=== PATIENT | male | born 1950 | race Caucasian/White ===

== ENCOUNTER 2023-02-06 05:56 | Day surgery (SDC) | payer MEDICARE, BC ==
[2023-01-30 13:50] LABS: BASOPHILS # (AUTO) 0.1 X10'3 (0-0.2); BASOPHILS % (AUTO) 1.2 % (0-1); EOSINOPHILS # (AUTO) 0.3 X10'3 (0-0.9); EOSINOPHILS % (AUTO) 2.6 % (0-6); LYMPHOCYTES # (AUTO) 2.9 X10'3 (1.1-4.8); LYMPHOCYTES % (AUTO) 27.8 % (21-51); MEAN CORPUSCULAR HEMOGLOBIN 29.7 PG (27.0-31.0); MEAN CORPUSCULAR HGB CONC 32.7 g/dL (33.0-36.5); MEAN CORPUSCULAR VOLUME 90.9 FL (78-98); MEAN PLATELET VOLUME 8.9 FL (7.4-10.4); MONOCYTES % (AUTO) 9.7 % (2-12); NEUTROPHILS # (AUTO) 6.1 X10'3 (1.8-7.7); NEUTROPHILS % (AUTO) 58.7 % (42-75); PRE OP HEMATOCRIT 45.5 % (42.0-52.0); PRE OP HEMOGLOBIN 14.9 g/dL (14.0-17.9); PRE OP PLATELET COUNT 265 X10'3 (140-440); RED BLOOD COUNT 5.01 X10'6 (4.70-6.10)
[2023-01-30 14:23] LABS: ALBUMIN 3.3 G/DL (3.4-5.0); ALBUMIN/GLOBULIN RATIO 0.8 (1.1-1.5); ALKALINE PHOSPHATASE 79 IU/L (46-116); BLOOD UREA NITROGEN 8 MG/DL (7-18); BUN/CREATININE RATIO 6.3 (10.0-20.0); CALCIUM 8.9 MG/DL (8.5-10.1); CHLORIDE 105 MMOL/L (99-107); CREATININE 1.26 MG/DL (0.60-1.10); PRE OP ALT 32 U/L (30-65); PRE OP ANION GAP 6 (8-16); PRE OP AST 24 U/L (10-37); PRE OP BILIRUB, TOTAL 0.6 MG/DL (0.0-1.0); PRE OP GLUCOSE 111 MG/DL (70-104); PRE OP POTASSIUM 4.1 MMOL/L (3.4-5.1); PRE OP SODIUM 138 MMOL/L (135-145); TOTAL CARBON DIOXIDE 27.4 MMOL/L (24-32); TOTAL PROTEIN 7.3 G/DL (6.4-8.2); eGFR 57 ML/MIN
[~2023-02-06] VITALS: Ht 182.9 cm; Wt 152.8 kg
[2023-02-06] VITALS (13 sets, daily range): BP systolic 132–181; BP diastolic 81–112; PULSE 63–95; RESP 6–22; TEMP 97.4; O2SAT 93–100
[~2023-02-06 05:56] MED LIST: APIX5TAB3 PO; DOCUMENT DATE & TIME OF BETA-BLOCKER PO ONE; FURO80TA3 PO; LOSA100T58 PO; METO-411 PO; MULT-1085 PO; ceFAZolin inj. 3,000 MG in normal saline 100ml IV soln 100 ML IV ONE; famotidine 20mg tablet PO ONE; normal saline 1000ml 500 ML IV SCH
[2023-02-06] MEDS ORDERED: BUPIVAcaine/PF 2.5 mg/ml (0.25%) 30ml vial ONE (06:31)
[2023-02-06] MEDS ORDERED: ringers solution, lacted 1,000 ML IV SCH (07:30)
[2023-02-06] MEDS ORDERED: morphine 2 MG/ML inj. syringe IV PRN (07:30)
[2023-02-06] MEDS ORDERED: ondansetron/PF 4mg/2ml inj IV PRN (07:30)
[2023-02-06] MEDS ORDERED: hydrALAZINE 20mg/ml inj. IV PRN (07:30)
[2023-02-06] MEDS ORDERED: morphine 4 MG/ML inj SYRINge IV PRN (07:30)
[2023-02-06] MEDS ORDERED: fentaNYL/PF 50MCG/1 ML 2ML syringe IV PRN ×2 (07:30)
[2023-02-06] MEDS ORDERED: labetalol 20mg/4ml (5mg/ml) syringe IV PRN (07:30)
[2023-02-06] MEDS ORDERED: fentaNYL /PF 50mcg/ml 5ml ampule ONE (09:25)
[2023-02-06] MEDS ORDERED: midazolam 1 mg/ML 2ml injection ONE (09:25)
[2023-02-06] MEDS ORDERED: LIDOcaine 2% (20mg/ml) 5ml vial ONE (09:25)
[2023-02-06] MEDS ORDERED: propofol inj 20 ML IV ONE ×2 (09:25→09:26)
[2023-02-06] MEDS ORDERED: rocuronium 10mg/ml inj IV ONE (09:26)
[2023-02-06] MEDS ORDERED: ondansetron/PF 4mg/2ml inj ONE (09:26)
[2023-02-06] MEDS ORDERED: dexamethasone sod phosphate 4mg/ml inj. ONE (09:26)
[2023-02-06] MEDS ORDERED: desflurane 240ml liquid inh. IH ONE (09:27)
[2023-02-06] MEDS ORDERED: sugammadex 200mg/2ml injection IV ONE (09:29)
[2023-02-06] MEDS ORDERED: phenylephrine 10mg/ml inj. -priapism dosing ONE (10:05)
[2023-02-06] MEDS ORDERED: bacitracin 15gm ointment TP ONE (10:24)
--- NOTE | 2023-02-06 10:45 | NUR ---
Received from OR via [facility], accompanied by Anesthesiologist DR SHRESTHA and report given by Anesthesiologist. PT IS AWAKE AND FOLLOWING COMMANDS. PT PLACED ON BEDSIDE MONITOR, VSS. PT IS IN A-FIB WITH CONTROLLED RATE IN 60'S. PT IS RECEIVING 10L O2 TO MASK AND TOLERATING WELL WITH O2 SAT >97%. WILL TITRATE DOWN PT TOLERATES. PT HAS 20G PIV TO LEFT HAND WITH LR INFUSING ORDERED. PT HAS LARGE DRSG TO MID ABD THAT IS CDI. PT DENIES PAIN AT THIS TIME, STATES BURNING SENSATION AND URGE TO URINATE. WILL CONTINUE TO ASSESS
[2023-02-06] MEDS ORDERED: HYDROcodone/acetaminophen 10/325mg tab PO ONE (11:50)
--- NOTE | 2023-02-06 13:14 | NUR ---
ALL DISCHARGE CRITERIA HAS BEEN MET. VSS, PAIN AT TOLERABLE LEVEL. ABLE TO SAFELY AMBULATE AND TRANSFER SELF. PT VOIDED 175ML VIA URINAL. IV TAKEN OUT WITHOUT ANY COMPLICATIONS. ALL DISCHARGE INSTRUCTIONS COVERED WITH PATIENT AND PT'S NIECE AND ALL QUESTIONS ANSWERED. PATIENT TAKEN OUT VIA WHEELCHAIR TO PERSONAL VEHICLE WHERE FAMILY/FRIEND DROVE PATIENT HOME.
== END 2023-02-06 12:56 | disposition home or self-care (01) ==
LOC: PAS 05:56
PROVIDERS: ATTEND Surgery
DX: K42.0 Umbilical hernia with obstruction, without gangrene (principal); I10 Essential (primary) hypertension; I48.91 Unspecified atrial fibrillation; E66.01 Morbid (severe) obesity due to excess calories; Z68.42 Body mass index [BMI] 45.0-49.9, adult; Z79.899 Other long term (current) drug therapy; Z87.891 Personal history of nicotine dependence; Z98.890 Other specified postprocedural states; Z79.01 Long term (current) use of anticoagulants; F10.91 Alcohol use, unspecified, in remission
CPT/HCPCS: 36415; 49594; 80053; 82948; 85025; J0690; J1100; J2250; J2270; J2370; J2405; J2704; J3010; J3490; J7030; J7120; Z7506; Z7508; Z7512; A4618; A6446; A6449; A7000

== ENCOUNTER 2024-02-07 13:20 | Inpatient (IN) | payer MEDICARE, BC ==
[~2024-02-07] VITALS: Ht 182.9 cm; Wt 159.6 kg
[~2024-02-07 13:20] MED LIST changes: -DOCUMENT DATE & TIME OF BETA-BLOCKER PO ONE; -ceFAZolin inj. 3,000 MG in normal saline 100ml IV soln 100 ML IV ONE; -famotidine 20mg tablet PO ONE; -normal saline 1000ml 500 ML IV SCH
[2024-02-07 16:35] LABS: BASOPHILS % (AUTO) 0.5 % (0-1); EOSINOPHILS # (AUTO) 0.2 X10'3 (0-0.9); EOSINOPHILS % (AUTO) 1.6 % (0-6); HEMATOCRIT 27.5 % (42.0-52.0); HEMOGLOBIN 8.9 g/dl (14.0-17.9); LYMPHOCYTES % (AUTO) 19.6 % (21-51); MEAN CORPUSCULAR HEMOGLOBIN 31.7 PG (27.0-31.0); MEAN CORPUSCULAR HGB CONC 32.4 g/dL (33.0-36.5); MEAN CORPUSCULAR VOLUME 97.9 FL (78-98); MEAN PLATELET VOLUME 9.4 FL (7.4-10.4); MONOCYTES % (AUTO) 9.7 % (2-12); NEUTROPHILS % (AUTO) 68.6 % (42-75); PLATELET COUNT 202 X10'3 (140-440); RED BLOOD COUNT 2.81 X10'6 (4.70-6.10); RED CELL DISTRIBUTION WIDTH 15.2 % (11.5-14.5); WHITE BLOOD COUNT 10.3 X10'3 (4.5-11.0)
[2024-02-07 16:47] LABS: APTT 25 SECONDS (22-32); INR 1.1 INR; PROTHROMBIN TIME 11.6 SECONDS (9.0-12.0)
[2024-02-07 16:58] LABS: ALANINE AMINOTRANSFERASE 26 U/L (12-78); ALBUMIN 3.2 G/DL (3.4-5.0); ALBUMIN/GLOBULIN RATIO 0.9 (1.1-1.5); ALKALINE PHOSPHATASE 67 IU/L (46-116); AMYLASE 48 U/L (25-115); ANION GAP 10 (8-16); ASPARTATE AMINO TRANSFERASE 19 U/L (10-37); BILIRUBIN,TOTAL 0.5 MG/DL (0.1-1.0); BLOOD UREA NITROGEN 30 MG/DL (7-18); BUN/CREATININE RATIO 29.7 (10.0-20.0); CALCIUM 8.6 MG/DL (8.5-10.1); CHLORIDE 108 MMOL/L (99-107); CREATININE 1.01 MG/DL (0.60-1.10); GLUCOSE 104 MG/DL (70-104); LIPASE 31 U/L (16-77); POTASSIUM 3.8 MMOL/L (3.5-5.1); SODIUM 141 MMOL/L (135-145); TOTAL CARBON DIOXIDE 23.2 MMOL/L (24-32); TOTAL PROTEIN 6.8 G/DL (6.4-8.2); eCRCL 74 ML/MIN; eGFR 73 ML/MIN
[2024-02-07 16:59] LABS: BILIRUBIN,URINE NEGATIVE (Neg); COLOR,URINE YELLOW (Yellow); GLUCOSE, URINE NEGATIVE (Neg); KETONES,URINE NEGATIVE (Neg); LEUKOCYTE ESTERASE ,URINE NEGATIVE (Neg); NITRITES, URINE NEGATIVE (Neg); OCCULT BLOOD,URINE NEGATIVE (Neg); PH,URINE 5.5 (4.8-8.0); PROTEIN,URINE NEGATIVE (Neg)
[2024-02-07 17:11] LABS: UA COLLECTION TYPE CLN CATCH MIDSTREAM
[2024-02-07 17:12] LABS: CLARITY,URINE SLIGHTLY CLOUDY (Clear)
[2024-02-07 17:13] LABS: BACTERIA,URINE NONE SEEN /HPF (Neg); MUCUS STRANDS FEW /LPF (Neg); SQUAMOUS EPITHELIAL CELL,UR FEW /LPF (FEW); WBC,URINE 0-4 /HPF (0-4)
[2024-02-07] MEDS: pantoprazole 40mg IV 80 MG in normal saline 100ml IV soln 100 ML IV ONE (17:35)
[2024-02-07] MEDS ORDERED: pantoprazole 40mg IV 80 MG in normal saline 100ml IV soln 100 ML IV ONE (17:35)
[2024-02-07] MEDS ORDERED: AMLO-708 PO (18:04)
[2024-02-07] MEDS ORDERED: ROSU10TA72 PO (18:04)
[2024-02-07] MEDS ORDERED: potassium Cl 20 mEq SR tablet PO PRN ×2 (18:15)
[2024-02-07] MEDS ORDERED: acetaminophen 325mg tablet PO PRN (18:15)
[2024-02-07] MEDS ORDERED: magnesium hydroxide 30ml (MOM) UD suspension PO PRN (18:15)
[2024-02-07] MEDS ORDERED: ondansetron/PF 4mg/2ml inj IV PRN (18:15)
[2024-02-07] MEDS ORDERED: magnesium sulf-water 4G/100mL 100 ML IV PRN (18:15)
[2024-02-07] MEDS ORDERED: potassium Cl 40MEQ/1/2NS 520ml 520 ML IV PRN (18:15)
[2024-02-07] MEDS ORDERED: mag hydrox/Alum hydrox/simeth 30ml oral suspension PO PRN (18:15)
[2024-02-07] MEDS ORDERED: magnesium sulf-water 2g/50mL 50 ML IV PRN (18:15)
[2024-02-07] MEDS ORDERED: magnesium Cl slow-release 64mg tablet PO PRN (18:15)
[2024-02-07 19:23] LABS: HEMOGLOBIN A1C 5.7 % (4.5-6.2)
[2024-02-07] MEDS: pantoprazole 40MG/NS 100ML BAG 100 ML IV SCH (19:23)
[2024-02-07] MEDS: pantoprazole 40 MG vial IV ONE (19:23)
[2024-02-07 19:24] LABS: BASOPHILS # (AUTO) 0.1 X10'3 (0-0.2); BASOPHILS % (AUTO) 1.4 % (0-1); EOSINOPHILS # (AUTO) 0.2 X10'3 (0-0.9); EOSINOPHILS % (AUTO) 1.8 % (0-6); HEMATOCRIT 25.4 % (42.0-52.0); HEMOGLOBIN 8.2 g/dl (14.0-17.9); LYMPHOCYTES # (AUTO) 2.6 X10'3 (1.1-4.8); LYMPHOCYTES % (AUTO) 26.1 % (21-51); MEAN CORPUSCULAR HEMOGLOBIN 31.5 PG (27.0-31.0); MEAN CORPUSCULAR HGB CONC 32.2 g/dL (33.0-36.5); MEAN PLATELET VOLUME 9.2 FL (7.4-10.4); MONOCYTES # (AUTO) 0.9 X10'3 (0-0.9); MONOCYTES % (AUTO) 9.1 % (2-12); NEUTROPHILS # (AUTO) 6.2 X10'3 (1.8-7.7); NEUTROPHILS % (AUTO) 61.6 % (42-75); PLATELET COUNT 189 X10'3 (140-440); RED BLOOD COUNT 2.59 X10'6 (4.70-6.10); RED CELL DISTRIBUTION WIDTH 15.6 % (11.5-14.5); WHITE BLOOD COUNT 10.1 X10'3 (4.5-11.0)
[2024-02-07] MEDS: normal saline 1000ml 1,000 ML IV SCH (19:24)
[2024-02-07 19:37] LABS: ETHANOL < 10 MG/DL (<10); FERRITIN 128 NG/ML (26-388)
[2024-02-07] MEDS: docusate sod 100mg capsule PO SCH (19:47)
[2024-02-07] MEDS: K and/or MAG REPLACEMENT MC SCH (19:47)
[2024-02-07 21:15] VITALS: BP 140/78; PULSE 89; RESP 19; TEMP 98.2; O2SAT 100
[2024-02-07] MEDS ORDERED: POTA-206 PO (21:52)
[2024-02-07] MEDS ORDERED: POTA99CA (21:52)
[2024-02-07] MEDS ORDERED: IBUP-1984 PO (21:52)
[2024-02-07] MEDS ORDERED: potasium PO (22:17)
[2024-02-07] MEDS ORDERED: POTA-207 PO (22:22)
[2024-02-08] VITALS (9 sets, daily range): BP systolic 106–136; BP diastolic 59–89; PULSE 73–86; RESP 14–22; TEMP 97.8–98.4; O2SAT 96–98
[2024-02-08 06:36] LABS: BASOPHILS # (AUTO) 0.1 X10'3 (0-0.2); BASOPHILS % (AUTO) 0.7 % (0-1); EOSINOPHILS # (AUTO) 0.2 X10'3 (0-0.9); EOSINOPHILS % (AUTO) 2.7 % (0-6); HEMATOCRIT 22.9 % (42.0-52.0); HEMOGLOBIN 7.4 g/dl (14.0-17.9); LYMPHOCYTES # (AUTO) 2.1 X10'3 (1.1-4.8); LYMPHOCYTES % (AUTO) 26.4 % (21-51); MEAN CORPUSCULAR HEMOGLOBIN 31.3 PG (27.0-31.0); MEAN CORPUSCULAR HGB CONC 32.2 g/dL (33.0-36.5); MEAN CORPUSCULAR VOLUME 97.2 FL (78-98); MEAN PLATELET VOLUME 9.1 FL (7.4-10.4); MONOCYTES # (AUTO) 0.8 X10'3 (0-0.9); MONOCYTES % (AUTO) 9.5 % (2-12); NEUTROPHILS # (AUTO) 4.9 X10'3 (1.8-7.7); NEUTROPHILS % (AUTO) 60.7 % (42-75); PLATELET COUNT 190 X10'3 (140-440); RED BLOOD COUNT 2.36 X10'6 (4.70-6.10); RED CELL DISTRIBUTION WIDTH 15.7 % (11.5-14.5); WHITE BLOOD COUNT 8.1 X10'3 (4.5-11.0)
[2024-02-08 07:10] LABS: ALANINE AMINOTRANSFERASE 24 U/L (12-78); ALBUMIN 2.7 G/DL (3.4-5.0); ALBUMIN/GLOBULIN RATIO 0.9 (1.1-1.5); ALKALINE PHOSPHATASE 56 IU/L (46-116); ANION GAP 11 (8-16); ASPARTATE AMINO TRANSFERASE 17 U/L (10-37); BILIRUBIN,TOTAL 0.5 MG/DL (0.1-1.0); BLOOD UREA NITROGEN 20 MG/DL (7-18); CHLORIDE 111 MMOL/L (99-107); CREATININE 0.91 MG/DL (0.60-1.10); GLUCOSE 101 MG/DL (70-104); MAGNESIUM 1.8 MG/DL (1.5-2.4); POTASSIUM 3.5 MMOL/L (3.5-5.1); SODIUM 145 MMOL/L (135-145); TOTAL CARBON DIOXIDE 22.6 MMOL/L (24-32); TOTAL PROTEIN 5.7 G/DL (6.4-8.2); eCRCL 82 ML/MIN; eGFR 82 ML/MIN
[2024-02-08] MEDS ORDERED: HYDROcodone/acetaminophen 5mg/325mg tablet PO PRN (09:05)
[2024-02-08] MEDS ORDERED: MIDAZolam 1 MG/ML 5ML VIAL ONE (11:06)
[2024-02-08] MEDS ORDERED: diphenhydrAMINE 50 mg/ml inj ONE (11:06)
[2024-02-08] MEDS ORDERED: fentaNYL/PF 50MCG/1 ML 2ML syringe ONE (11:06)
[2024-02-08] MEDS ORDERED: LIDOcaine 2% Viscous 15ml cup ONE (11:07)
[2024-02-08] MEDS ORDERED: oxyCODONE/APAP 5-325mg tablet PO PRN (11:10)
[2024-02-08 13:13] LABS: OCCULT BLOOD STOOL POSITIVE (Neg)
[2024-02-09 06:00] VITALS: BP 114/66; PULSE 77; RESP 17; TEMP 97.3; O2SAT 98
[2024-02-09 07:13] LABS: BASOPHILS # (AUTO) 0.1 X10'3 (0-0.2); BASOPHILS % (AUTO) 0.9 % (0-1); EOSINOPHILS # (AUTO) 0.3 X10'3 (0-0.9); EOSINOPHILS % (AUTO) 4.3 % (0-6); HEMATOCRIT 23.8 % (42.0-52.0); HEMOGLOBIN 7.6 g/dl (14.0-17.9); LYMPHOCYTES # (AUTO) 1.8 X10'3 (1.1-4.8); LYMPHOCYTES % (AUTO) 27.4 % (21-51); MEAN CORPUSCULAR HEMOGLOBIN 31.5 PG (27.0-31.0); MEAN CORPUSCULAR HGB CONC 32.1 g/dL (33.0-36.5); MEAN CORPUSCULAR VOLUME 98.2 FL (78-98); MEAN PLATELET VOLUME 9.2 FL (7.4-10.4); MONOCYTES # (AUTO) 0.7 X10'3 (0-0.9); MONOCYTES % (AUTO) 10.3 % (2-12); NEUTROPHILS # (AUTO) 3.8 X10'3 (1.8-7.7); NEUTROPHILS % (AUTO) 57.1 % (42-75); PLATELET COUNT 194 X10'3 (140-440); RED BLOOD COUNT 2.43 X10'6 (4.70-6.10); RED CELL DISTRIBUTION WIDTH 16.3 % (11.5-14.5); WHITE BLOOD COUNT 6.7 X10'3 (4.5-11.0)
[2024-02-09 07:30] LABS: ALANINE AMINOTRANSFERASE 26 U/L (12-78); ALBUMIN 2.7 G/DL (3.4-5.0); ALBUMIN/GLOBULIN RATIO 0.8 (1.1-1.5); ALKALINE PHOSPHATASE 58 IU/L (46-116); ANION GAP 11 (8-16); ASPARTATE AMINO TRANSFERASE 17 U/L (10-37); BILIRUBIN,TOTAL 0.4 MG/DL (0.1-1.0); BLOOD UREA NITROGEN 14 MG/DL (7-18); BUN/CREATININE RATIO 16.7 (10.0-20.0); CALCIUM 8.3 MG/DL (8.5-10.1); CHLORIDE 109 MMOL/L (99-107); CREATININE 0.84 MG/DL (0.60-1.10); GLUCOSE 106 MG/DL (70-104); MAGNESIUM 1.8 MG/DL (1.5-2.4); POTASSIUM 3.5 MMOL/L (3.5-5.1); SODIUM 144 MMOL/L (135-145); TOTAL CARBON DIOXIDE 24.1 MMOL/L (24-32); TOTAL PROTEIN 5.9 G/DL (6.4-8.2); eCRCL 89 ML/MIN; eGFR 90 ML/MIN
[2024-02-09 08:00] VITALS: RESP 17; O2SAT 98
[2024-02-09] MEDS: pantoprazole 40 MG vial IV SCH (08:16)
[2024-02-09 10:00] VITALS: BP 108/79; PULSE 87; RESP 17; TEMP 97.5; O2SAT 97
[2024-02-09] MEDS ORDERED: DICL2.5G TP (13:00)
[2024-02-09] MEDS ORDERED: PANT-47 PO (13:00)
== END 2024-02-09 14:15 | disposition home or self-care (01) | DRG 378 ==
LOC: ER 13:20 → ED HOLD 18:26 → EDBEDREQ 20:30 → ORTHO 4S 21:19
PROVIDERS: ADMIT Internal Medicine; ATTEND Internal Medicine
PROC: 0DJ08ZZ Inspection of Upper Intestinal Tract, Via Natural or Artificial Opening Endoscopic (ICD-10-PCS; principal; 2024-02-08)
DX: K29.71 Gastritis, unspecified, with bleeding (principal); D62 Acute posthemorrhagic anemia; Z68.42 Body mass index [BMI] 45.0-49.9, adult; K25.4 Chronic or unspecified gastric ulcer with hemorrhage; I48.91 Unspecified atrial fibrillation; E78.00 Pure hypercholesterolemia, unspecified; I10 Essential (primary) hypertension; E66.01 Morbid (severe) obesity due to excess calories; T39.315A Adverse effect of propionic acid derivatives, initial encounter; Z79.01 Long term (current) use of anticoagulants; Z79.899 Other long term (current) drug therapy; Y92.89 Other specified places as the place of occurrence of the external cause
CPT/HCPCS: 36415; 43239; 80053; 80320; 81001; 82150; 82272; 82728; 83036; 83540; 83690; 83735; 85025; 85610; 85730; 86885; 86900; 86901; 87081; 93005; 99152; 99285; A4615; A4620; A6258; A6449; G0378; J1200; J2250; J2470; J3010; J7030

== ENCOUNTER 2024-08-11 05:26 | Day surgery (SDC) | payer MEDICARE, BC ==
[2024-08-07 10:54] LABS: BASOPHILS % (AUTO) 0.7 % (0-1); EOSINOPHILS # (AUTO) 0.3 X10'3 (0-0.9); HEMATOCRIT 41.8 % (42.0-52.0); HEMOGLOBIN 13.3 g/dl (14.0-17.9); LYMPHOCYTES # (AUTO) 1.7 X10'3 (1.1-4.8); MEAN CORPUSCULAR HEMOGLOBIN 29.8 PG (27.0-31.0); MEAN CORPUSCULAR HGB CONC 31.8 g/dL (33.0-36.5); MEAN CORPUSCULAR VOLUME 93.7 FL (78-98); MEAN PLATELET VOLUME 9.4 FL (7.4-10.4); MONOCYTES # (AUTO) 0.6 X10'3 (0-0.9); MONOCYTES % (AUTO) 10.2 % (2-12); NEUTROPHILS # (AUTO) 3.2 X10'3 (1.8-7.7); NEUTROPHILS % (AUTO) 55.1 % (42-75); PLATELET COUNT 222 X10'3 (140-440); RED BLOOD COUNT 4.46 X10'6 (4.70-6.10); RED CELL DISTRIBUTION WIDTH 19.4 % (11.5-14.5); WHITE BLOOD COUNT 5.8 X10'3 (4.5-11.0)
[2024-08-07 11:09] LABS: APTT 29 SECONDS (22-32); INR 1.1 INR; PROTHROMBIN TIME 11.4 SECONDS (9.0-12.0)
[2024-08-07 11:14] LABS: ALBUMIN 3.2 G/DL (3.4-5.0); ANION GAP 5 (8-16); BLOOD UREA NITROGEN 13 MG/DL (7-18); BUN/CREATININE RATIO 13.3 (10.0-20.0); CALCIUM 8.9 MG/DL (8.5-10.1); CHLORIDE 105 MMOL/L (99-107); CHOL/HDL RATIO 4.2 (0.00-4.99); CHOLESTEROL 169 MG/DL (0-200); CREATININE 0.98 MG/DL (0.60-1.10); GLUCOSE 131 MG/DL (70-104); HDL CHOLESTEROL 40 MG/DL (35-60); LDL CHOLESTEROL 117 MG/DL (50-100); POTASSIUM 4.1 MMOL/L (3.5-5.1); SODIUM 141 MMOL/L (135-145); TOTAL CARBON DIOXIDE 31.4 MMOL/L (24-32); TRIGLYCERIDES 152 MG/DL (20-135); eGFR 75 ML/MIN
[2024-08-07 12:30] LABS: ANISOCYTOSIS 2+; ELLIPTOCYTES FEW; PLATELET ESTIMATE NORMAL
[2024-08-11] VITALS (9 sets, daily range): BP systolic 148–199; BP diastolic 76–188; PULSE 72–84; RESP 16; TEMP 98; O2SAT 95–98
[~2024-08-11] VITALS: Ht 182.9 cm; Wt 157.3 kg
[~2024-08-11 05:26] MED LIST changes: +AMLO-708 PO; -APIX5TAB3 PO; +DICL2.5G TP; -METO-411 PO; -MULT-1085 PO; +PANT-47 PO; +POTA-206 PO; +POTA-207 PO; +ROSU10TA72 PO
[2024-08-11] MEDS ORDERED: METO-411 PO (05:47)
[2024-08-11] MEDS ORDERED: APIX5TAB3 PO (05:48)
[2024-08-11] MEDS ORDERED: IBUP-1984 PO (05:49)
[2024-08-11] MEDS ORDERED: MULT-1249 PO (05:49)
[2024-08-11] MEDS ORDERED: LORazepam 0.5 MG tablet PO PRN (05:50)
[2024-08-11] MEDS ORDERED: fentaNYL/PF 50MCG/1 ML 2ML syringe ONE (06:49)
[2024-08-11] MEDS ORDERED: midazolam 1 mg/ML 2ml injection ONE (06:49)
[2024-08-11] MEDS ORDERED: LIDOcaine 1% (10mg/ml) 2ml vial ONE (06:49)
[2024-08-11] MEDS ORDERED: verapamil 2.5 mg/ml inj IV ONE (06:49)
[2024-08-11] MEDS ORDERED: nitroGLYCERIN 500mcg/5mL D5W 5 ML IV ONE (06:50)
[2024-08-11] MEDS ORDERED: iohexol 350MG/ML 100ml bottle IV ONE (06:50)
[2024-08-11] MEDS ORDERED: heparin 1,000unit/ml 10ml vial 10 ML ONE (06:50)
[2024-08-11] MEDS: normal saline 1,000 ML IV SCH (07:17)
[2024-08-11] MEDS: diphenhydrAMINE 25mg capsule PO PRN (07:17)
[2024-08-11] MEDS ORDERED: iohexol 350 MG/ML 50ML vial IV ONE (07:49)
[2024-08-11 07:53] LABS: ISTAT HGB ART 13.9 g/dl (14.0-17.9); ISTAT Hct ART 41 %PCV (42-52); ISTAT O2 SATURATION ARTERIAL 97 % (95-98); ISTAT SOURCE ART
[2024-08-11] MEDS ORDERED: HYDROcodone/acetaminophen 5mg/325mg tablet PO PRN (08:30)
[2024-08-11] MEDS ORDERED: HYDROcodone/acetaminophen 10/325mg tab PO PRN (08:30)
[2024-08-11 10:35] LABS: ISTAT HGB MIX 13.9 g/dl (14.0-17.9); ISTAT Hct MIX 41 %PCV (42-52); ISTAT O2 SATURATION MIX VENOUS 66 % (60-80); ISTAT SOURCE VEN
[2024-08-11] MEDS ORDERED: ibuprofen tablet 400 MG TABLET PO SCH (20:00)
[2024-08-12] MEDS ORDERED: losartan 50mg tablet PO SCH (08:00)
[2024-08-12] MEDS ORDERED: furosemide 40mg tablet PO SCH (08:00)
[2024-08-12] MEDS ORDERED: multivitamins, therapeutics tablet PO SCH (08:00)
[2024-08-12] MEDS ORDERED: metoprolol succinate 25mg (24-HOUR) SR. Tablet PO SCH (08:00)
[2024-08-13] MEDS ORDERED: apixaban 5mg tablet PO SCH (08:00)
== END 2024-08-11 10:30 | disposition home or self-care (01) ==
LOC: SSTAY O 05:26
PROVIDERS: ATTEND Internal Medicine Interventional Cardiology
DX: I35.0 Nonrheumatic aortic (valve) stenosis (principal); Z79.01 Long term (current) use of anticoagulants; Z79.899 Other long term (current) drug therapy; I10 Essential (primary) hypertension; I48.91 Unspecified atrial fibrillation; I50.9 Heart failure, unspecified; Z98.890 Other specified postprocedural states
CPT/HCPCS: 36415; 80048; 80061; 82803; 85014; 85025; 85610; 85730; 93005; 93456; 99152; A6258; A6402; C1751; C1894; J1644; J2003; J2250; J3010; J3490; J7030; Q0163; Q9967; Z7610; 85008; 99153

== ENCOUNTER 2024-09-03 10:21 | Outpatient (CLI) | payer MEDICARE, BC ==
[~2024-09-03 10:21] MED LIST changes: -AMLO-708 PO; +APIX5TAB3 PO; -DICL2.5G TP; +IBUP-1984 PO; +METO-411 PO; +MULT-1249 PO; -PANT-47 PO; -POTA-206 PO; -POTA-207 PO; -ROSU10TA72 PO
[2024-09-03] MEDS ORDERED: IODIXANOL 320 MG/ML INFUS..BTL 100ML IV ONE (11:08)
[2024-09-03 11:11] LABS: BASOPHILS # (AUTO) 0.1 X10'3 (0-0.2); BASOPHILS % (AUTO) 0.9 % (0-1); EOSINOPHILS # (AUTO) 0.3 X10'3 (0-0.9); EOSINOPHILS % (AUTO) 4.3 % (0-6); HEMATOCRIT 40.8 % (42.0-52.0); HEMOGLOBIN 13.4 g/dl (14.0-17.9); LYMPHOCYTES # (AUTO) 1.8 X10'3 (1.1-4.8); LYMPHOCYTES % (AUTO) 28.4 % (21-51); MEAN CORPUSCULAR HEMOGLOBIN 30.8 PG (27.0-31.0); MEAN CORPUSCULAR HGB CONC 32.8 g/dL (33.0-36.5); MEAN CORPUSCULAR VOLUME 93.8 FL (78-98); MEAN PLATELET VOLUME 9.3 FL (7.4-10.4); MONOCYTES # (AUTO) 0.7 X10'3 (0-0.9); MONOCYTES % (AUTO) 11.4 % (2-12); NEUTROPHILS # (AUTO) 3.5 X10'3 (1.8-7.7); PLATELET COUNT 221 X10'3 (140-440); RED BLOOD COUNT 4.35 X10'6 (4.70-6.10); RED CELL DISTRIBUTION WIDTH 16.8 % (11.5-14.5); WHITE BLOOD COUNT 6.3 X10'3 (4.5-11.0)
[2024-09-03 11:24] LABS: APTT 29 SECONDS (22-32); INR 1.1 INR; PROTHROMBIN TIME 11.4 SECONDS (9.0-12.0)
[2024-09-03 11:35] LABS: GLUCOSE 109 MG/DL (70-104); SODIUM 138 MMOL/L (135-145)
[2024-09-03 11:36] LABS: ALANINE AMINOTRANSFERASE 19 U/L (12-78); ALBUMIN 3.3 G/DL (3.4-5.0); ALBUMIN/GLOBULIN RATIO 0.7 (1.1-1.5); ALKALINE PHOSPHATASE 97 IU/L (46-116); ANION GAP 4 (8-16); ASPARTATE AMINO TRANSFERASE 18 U/L (10-37); BILIRUBIN,TOTAL 0.5 MG/DL (0.1-1.0); BLOOD UREA NITROGEN 14 MG/DL (7-18); BUN/CREATININE RATIO 13.6 (10.0-20.0); CALCIUM 8.5 MG/DL (8.5-10.1); CHLORIDE 104 MMOL/L (99-107); CREATININE 1.03 MG/DL (0.60-1.10); TOTAL PROTEIN 7.8 G/DL (6.4-8.2); eGFR 71 ML/MIN
[2024-09-03 11:42] LABS: PRO BRAIN NATRIURETIC PEPTIDE 798 PG/ML (0-125)
== END 2024-09-03 23:59 | disposition home or self-care (01) ==
LOC: RAD 10:21
PROVIDERS: ATTEND Internal Medicine Cardiovascular Disease
DX: I51.7 Cardiomegaly (principal); I35.0 Nonrheumatic aortic (valve) stenosis; R06.02 Shortness of breath; I65.29 Occlusion and stenosis of unspecified carotid artery; J98.11 Atelectasis; J98.4 Other disorders of lung; N28.1 Cyst of kidney, acquired; I71.40 Abdominal aortic aneurysm, without rupture, unspecified; R09.89 Other specified symptoms and signs involving the circulatory and respiratory systems
CPT/HCPCS: 36415; 71046; 71275; 74174; 75572; 80053; 83880; 85025; 85610; 85730; Q9967

== ENCOUNTER 2024-11-19 08:14 | Inpatient (IN) | payer MEDICARE, BC ==
--- NOTE | 2024-11-16 10:07 | ELECTROCARDIOGRAPH REPORT ---
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 VIOLA Richard Measurements Intervals [place] Rate: 81 P: 0 GA: 0 QRS: -41 QRSD: 121 T: 27 QT: 437 QTc: 508 Interpretive Statements Atrial fibrillation Nonspecific IVCD with LAD Electronically Signed On 11-17-2024 8:33:[address] VIOLA Richard Please click the below link to view image of tracing.
[2024-11-16 10:29] LABS: BASOPHILS # (AUTO) 0.1 X10'3 (0-0.2); BASOPHILS % (AUTO) 1.1 % (0-1); EOSINOPHILS # (AUTO) 0.3 X10'3 (0-0.9); EOSINOPHILS % (AUTO) 5.6 % (0-6); LYMPHOCYTES # (AUTO) 1.5 X10'3 (1.1-4.8); LYMPHOCYTES % (AUTO) 24.6 % (21-51); MEAN CORPUSCULAR HEMOGLOBIN 27.9 PG (27.0-31.0); MEAN CORPUSCULAR HGB CONC 31.8 g/dL (33.0-36.5); MEAN CORPUSCULAR VOLUME 87.8 FL (78-98); MEAN PLATELET VOLUME 8.9 FL (7.4-10.4); MONOCYTES # (AUTO) 0.7 X10'3 (0-0.9); MONOCYTES % (AUTO) 11.9 % (2-12); NEUTROPHILS # (AUTO) 3.5 X10'3 (1.8-7.7); NEUTROPHILS % (AUTO) 56.8 % (42-75); PRE OP HEMATOCRIT 41.3 % (42.0-52.0); PRE OP HEMOGLOBIN 13.1 g/dL (14.0-17.9); PRE OP PLATELET COUNT 248 X10'3 (140-440); PRE OP WHITE BLOOD COUNT 6.2 10'3 (4.8-10.8); RED CELL DISTRIBUTION WIDTH 15.5 % (11.5-14.5)
[2024-11-16 10:40] LABS: PRE OP INR 1.1 INR; PRE OP PROTIME 11.5 SECONDS (9.0-12.0)
[2024-11-16 10:49] LABS: ALBUMIN 3.3 G/DL (3.4-5.0); ALBUMIN/GLOBULIN RATIO 0.8 (1.1-1.5); ALKALINE PHOSPHATASE 98 IU/L (46-116); BLOOD UREA NITROGEN 12 MG/DL (7-18); BUN/CREATININE RATIO 12.9 (10.0-20.0); CALCIUM 8.8 MG/DL (8.5-10.1); CHLORIDE 105 MMOL/L (99-107); CREATININE 0.93 MG/DL (0.60-1.10); PRE OP ALT 25 U/L (30-65); PRE OP ANION GAP 7 (8-16); PRE OP AST 18 U/L (10-37); PRE OP BILIRUB, TOTAL 0.8 MG/DL (0.0-1.0); PRE OP GLUCOSE 118 MG/DL (70-104); PRE OP SODIUM 142 MMOL/L (135-145); PRO BRAIN NATRIURETIC PEPTIDE 705 PG/ML (0-125); TOTAL CARBON DIOXIDE 29.8 MMOL/L (24-32); TOTAL PROTEIN 7.2 G/DL (6.4-8.2); eGFR 80 ML/MIN
--- NOTE | 2024-11-16 11:57 | RADIOLOGY REPORT ---
DI CHEST,TWO VIEWS CLINICAL HISTORY: PREOP COMPARISON: DI CHEST,TWO VIEWS on DOS: 09/03/24 TECHNIQUE: Frontal and lateral view of the chest was obtained FINDINGS: Lines and Tubes: None Lungs: 4 Cm right lower lobe masslike opacity. CT recommended. Pleura: No effusion. No pneumothorax. Cardiomediastinal contours: Unremarkable Bones: No acute osseous abnormality. IMPRESSION: 4 Cm right lower lobe masslike opacity. CT recommended.
[2024-11-16 12:07] LABS: BILIRUBIN,URINE NEGATIVE (Neg); CLARITY,URINE CLEAR (Clear); GLUCOSE, URINE NEGATIVE (Neg); KETONES,URINE NEGATIVE (Neg); LEUKOCYTE ESTERASE ,URINE NEGATIVE (Neg); NITRITES, URINE NEGATIVE (Neg); OCCULT BLOOD,URINE NEGATIVE (Neg); PROTEIN,URINE NEGATIVE (Neg)
[2024-11-16 12:08] LABS: COLOR,URINE DARK YELLOW (Yellow); UA COLLECTION TYPE CLN CATCH MIDSTREAM
[~2024-11-19] VITALS: Ht 182.9 cm; Wt 152.7 kg
[2024-11-19] VITALS (22 sets, daily range): BP systolic 140–200; BP diastolic 70–132; PULSE 82–116; RESP 12–22; TEMP 97.4–97.6; O2SAT 92–99
[2024-11-19] MEDS: phenylephrine inj 50 MG in normal saline 250ml IV solN IV SCH (05:30)
[2024-11-19] MEDS: DOCUMENT DATE & TIME OF BETA-BLOCKER PO ONE (05:30)
[2024-11-19] MEDS: nitroPRUSSIDE (NIPRIDE) (200MCG/ML) 100ML Drip IV SCH (05:30)
[~2024-11-19 08:14] MED LIST changes: -IBUP-1984 PO; -MULT-1249 PO; +ondansetron/PF 4mg/2ml inj IV PRN; +protamine sulfate 10mg/ml inj. ONE
[2024-11-19] MEDS: aspirin 325mg tablet PO ONE (09:21)
[2024-11-19] MEDS: famotidine 20mg tablet PO ONE (09:21)
[2024-11-19] MEDS: CEFAZOLIN 3GM/DEXTROSE 150mL 150 ML IV ONE (09:23)
[2024-11-19] MEDS: VANCOMYCIN/H2O 1.5g/300mL PB 300 ML IV ONE (09:23)
[2024-11-19] MEDS: ringers solution, lacted 1,000 ML IV SCH (09:23)
[2024-11-19] MEDS ORDERED: heparin 1,000 UNITS/NS 500ml 1,500 ML ONE (10:55)
[2024-11-19] MEDS ORDERED: LIDOcaine 1% (10mg/ml) 2ml vial ONE (10:55)
[2024-11-19] MEDS ORDERED: iohexol 350MG/ML 100ml bottle IV ONE (10:55)
[2024-11-19] MEDS ORDERED: midazolam 1 mg/ML 2ml injection ONE (11:15)
[2024-11-19] MEDS ORDERED: fentaNYL/PF 50MCG/1 ML 2ML syringe ONE (11:15)
[2024-11-19] MEDS ORDERED: sevoflurane 250ml liquid IH ONE (11:50)
[2024-11-19] MEDS ORDERED: furosemide 40mg tablet PO PRN (12:00)
[2024-11-19] MEDS ORDERED: rocuronium 10mg/ml inj IV ONE (12:20)
[2024-11-19] MEDS ORDERED: ondansetron/PF 4mg/2ml inj ONE (12:20)
[2024-11-19] MEDS ORDERED: heparin 1,000unit/ml 10ml vial 10 ML ONE ×2 (12:20)
[2024-11-19] MEDS ORDERED: LIDOcaine 2% (20mg/ml) 5ml vial ONE (12:20)
[2024-11-19] MEDS ORDERED: dexamethasone sod phosphate 4mg/ml inj. ONE (12:20)
[2024-11-19] MEDS ORDERED: propofol inj 20 ML IV ONE (12:20)
[2024-11-19] MEDS ORDERED: sugammadex 200mg/2ml injection IV ONE (12:21)
[2024-11-19] MEDS ORDERED: ALPRAZolam 0.25mg tablet PO PRN (13:00)
[2024-11-19] MEDS ORDERED: potassium Cl 40MEQ/1/2NS 520ml 520 ML IV PRN (13:00)
[2024-11-19] MEDS ORDERED: pantoprazole 40mg Tablet.DR PO PRN (13:00)
[2024-11-19] MEDS ORDERED: potassium Cl 20mEq/100mL bag 100 ML IV PRN (13:00)
[2024-11-19] MEDS ORDERED: ondansetron/PF 4mg/2ml inj IV PRN (13:00)
[2024-11-19] MEDS: normal saline 1000ml 1,000 ML IV SCH (13:00)
[2024-11-19] MEDS ORDERED: magnesium sulf-water 4G/100mL 100 ML IV PRN (13:00)
[2024-11-19] MEDS ORDERED: acetaminophen 325mg tablet PO PRN (13:00)
[2024-11-19] MEDS ORDERED: potassium Cl 20 mEq SR tablet PO PRN (13:00)
[2024-11-19] MEDS ORDERED: diphenhydrAMINE 25mg capsule PO PRN (13:00)
[2024-11-19] MEDS ORDERED: potassium Cl 40MEQ/270ML bag 250 ML IV PRN (13:00)
[2024-11-19] MEDS ORDERED: magnesium sulf-water 2g/50mL 50 ML IV PRN (13:00)
[2024-11-19] MEDS ORDERED: docusate sod 100mg capsule PO PRN (13:00)
[2024-11-19] MEDS ORDERED: proCHLORperazine 10 MG/2 ml inj IV PRN (13:00)
[2024-11-19] MEDS ORDERED: potassium CL 10mEq/100ml bag 100 ML IV PRN (13:00)
--- NOTE | 2024-11-19 13:06 | OPERATIVE REPORT ---
Operative Report Providers to CC CC: JASIEL OSORIO MD ~ Date of Procedure: Nov 19, 2024 Pre-Operative Diagnosis: Severe Aortic Stenosis Post-Operative Diagnosis SAME as PRE-Op Procedure Performed 1. Ultrasound-guided access, bilateral femoral vessels. 2. Bilateral femoral angiography. 3. Ascending aortography. 4. Temporary transvenous pacer to the RV apex. 5. Placement of a 26 mm Soares S3 Resilia valve. Surgeon: Daniel Osorio MD Transportation Engineer MD Dr. Lakhwinder Lopez MD Anesthesiologist: Adan Chopra Findings: Severe Aortic Stenosis Complications None Prosthetics\Implants used: Soares 26mm S3 Resilia Estimated Blood Loss: Minimal Specimen Removed: None Description of Procedure: The patient was brought to the vp lab in a fasting state. They underwent general anesthesia. A left radial arterial line was placed. Ultrasound was used to guide access to the bilateral femoral vessels, 7-Wallisian sheath, right femoral artery, 6-Wallisian sheath, left femoral artery and vein. Bilateral femoral angiograms were obtained. Heparin was given to maintain an ACT over 250 seconds. Two crisscross Percloses were placed on the right. We upsized to an 8-Wallisian sheath. Two pigtail catheters placed in the ascending aorta. Ascending aortography done to determine the angle of deployment. Temporary transvenous pacer to the RV apex and confirmed capture. We upsized an 8-Wallisian sheath to a 14-Wallisian Soares eSheath on the right. We crossed the aortic valve using a straight stiff exchange length Terumo wire supported by a 6-Wallisian AL1 catheter. LV AO pressures were recorded. A Doocuments extra support wire was placed in the left ventricle. A 26mm Soares S3 Resilia valve was brought to position and under rapid right ventricular pacing was deployed. Post-procedure, there was trivial AI and no residual . Guidewires and balloons were removed at this time. The temporary pacer was removed. The 14-Wallisian Soares eSheath was removed and two crisscross Percloses tied with adequate hemostasis. The arterial sheath on the left was removed and a single Perclose tied. The venous sheath on the left was removed and a single Angioseal used for hemostasis. Protamine was given to reverse the effects of heparin. The patient was stable post-procedure. Good pulses in the legs and no evidence of bleeding, transferred to the PACU in stable condition. HEMODYNAMICS: Pre: LV: 132/3 mmHg LVEDP: 11mmHg Ao: 105/70, MAP 85mmHg Post: LV: 135/3 mmHg LVEDP: 10 mmHg Ao: 133/77, MAP 99mmHg RESULTS: 1. Successful placement of a 26 mm Soares S3 Resilia valve, right transfemoral approach, two perclose devices. Resume OAC in AM if no signs/symptoms of bleeding 2. HFimpEF: Resume GDMT 3. Hypertension: Resume if blood pressure remains stable 4. 4cm nodule seen on CXR. CT chest non-con in AM Patient will be watched in the recovery area until stable, then transferred to telemetry at that time. DANIEL OSORIO MD Nov 19, 2024 13:06
[2024-11-19] MEDS: hydrALAZINE 20mg/ml inj. IV PRN (13:15)
--- NOTE | 2024-11-19 13:32 | ELECTROCARDIOGRAPH REPORT ---
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 VIOLA Richard Measurements Intervals [place] Rate: 92 P: 0 CT: 0 QRS: -21 QRSD: 122 T: 43 QT: 431 QTc: 534 Interpretive Statements Atrial fibrillation Nonspecific intraventricular conduction delay Electronically Signed On 11-24-2024 18:30:[address] VIOLA Richard Please click the below link to view image of tracing.
[2024-11-19] MEDS: HYDROcodone/acetaminophen 5mg/325mg tablet PO PRN (14:59)
--- NOTE | 2024-11-19 15:31 | CARDIOLOGY REPORT ---
APPROVED REPORT EXAM: Focused, limited intraprocedural transthoracic 2D, spectral and color flow Doppler echocardiog dominick during TAVR deployment. Patient Location: [employer]NAGER Blood Pressure: 120 / 84 mmHg Heart Rate: 90-100 bpm Rhythm: ATRIAL FIBRILLATION Indications SEVERE AORTIC STENOSIS HYPERTENSION ATRIAL FIBRILLATION CONGESTIVE HEART FAILURE 26mm Soares Jules 3 Ultra RESILIA Bioprosthetic TAVR Registrar Nurses' Registry: Fredi Osorio MD / Interventionalist: Fredi Osorio MD and Manpreet Warren MD. / Surgeon: Colton hector MD. / Device rep: Maine Olmos ELS Previous echo: 07/21/24 CVC SCN EF: 50; FRANSISCO: 074; PKV: 4.32; GRAD: 75 / 38; LVOT 2.03; trTR; mMR LEFT VENTRICLE Normal LV size with moderately reduced function. Mild concentric hypertrophy. LVEF is 45%. RIGHT VENTRICLE RV is normal size and function. Calcified moderator band ATRIA Left atrium appears at least moderately dilated. AORTIC VALVE Trileaflet AV appears severely calcified with significant stenosis demonstrated by reduced excursion and increased transvalvular and ascending aorta turbulance. FRANSISCO is measured at 0.90 cmsq. Peak / mean gradients of 71 / 41 mmHG. Peak velocity is measured at 4.23 m/sec. Trace insufficiency. POST DEPL OYMENT (LOOP:37 ) 26 mm Soares Jules 3 Ultra Resilia bioprosthetic TAVR appears well seated with no rmal function. Trace paravalvular leak present at 6 o'clock in TTE SAX BASE. FRANSISCO is measured at 3.20 cmsq. Peak / mean gradients of 13 / 7 mmHG. Peak velocity is measured at 1.82 m/sec. Measurements are multi sampled averages due to variable rhythm. MITRAL VALVE Mild MV annular calcification without stenosis. Trace regurgitation. TRICUSPID VALVE TV appears structurally normal with trace regurgitation. PULMONIC VALVE Normal PV without stenosis, physiologic insufficiency. GREAT VESSELS Ascending aorta is dilated at 3.9cm. PERICARDIUM Normal pericardium. No effusion.
[2024-11-19] MEDS: sod chloride 0.9% 10ml flush syringe IV SCH (16:00)
[2024-11-19] MEDS: ceFAZolin 1GM/D5W- ADD-VANTAGE 50 ML IV SCH (17:21)
[2024-11-19] MEDS: labetalol 20mg/4ml (5mg/ml) syringe IV PRN (17:24)
[2024-11-19] MEDS ORDERED: VANCOMYCIN 1GM 200ML H20 (PEG) 200 ML IV SCH (20:00)
[2024-11-19] MEDS: vancomycin/NS 1 GM ADD-VANTAGE 250 ML IV SCH (20:44)
[2024-11-20 01:30] VITALS: RESP 16; O2SAT 93
[2024-11-20 02:00] VITALS: BP 141/96; PULSE 92; RESP 21; TEMP 97.4; O2SAT 92
[2024-11-20 06:00] VITALS: BP 149/86; PULSE 60; RESP 17; TEMP 97.3; O2SAT 95
[2024-11-20 06:57] LABS: BASOPHILS # (AUTO) 0.1 X10'3 (0-0.2); BASOPHILS % (AUTO) 0.5 % (0-1); EOSINOPHILS % (AUTO) 0 % (0-6); HEMATOCRIT 37.8 % (42.0-52.0); LYMPHOCYTES # (AUTO) 1.1 X10'3 (1.1-4.8); LYMPHOCYTES % (AUTO) 8.2 % (21-51); MEAN CORPUSCULAR HGB CONC 31.8 g/dL (33.0-36.5); MEAN PLATELET VOLUME 9.4 FL (7.4-10.4); MONOCYTES # (AUTO) 0.9 X10'3 (0-0.9); MONOCYTES % (AUTO) 7.2 % (2-12); NEUTROPHILS # (AUTO) 10.9 X10'3 (1.8-7.7); NEUTROPHILS % (AUTO) 84.1 % (42-75); PLATELET COUNT 184 X10'3 (140-440); RED CELL DISTRIBUTION WIDTH 15.8 % (11.5-14.5); WHITE BLOOD COUNT 12.9 X10'3 (4.5-11.0)
--- NOTE | 2024-11-20 07:15 | RADIOLOGY REPORT ---
EXAM: XR Chest, 1 View CLINICAL INDICATION: s/p TAVR TECHNIQUE: Frontal view of the chest. COMPARISON: None FINDINGS: LUNGS AND PLEURAL SPACES: Right basilar atelectasis or pneumonia. No pneumothorax. HEART: Unremarkable. No cardiomegaly. MEDIASTINUM: Unremarkable. Normal mediastinal contour. BONES/JOINTS: Unremarkable. No acute fracture. OTHER FINDINGS: . . . IMPRESSION: Right basilar atelectasis or pneumonia.
[2024-11-20 07:21] LABS: ALANINE AMINOTRANSFERASE 19 U/L (12-78); ALBUMIN/GLOBULIN RATIO 0.8 (1.1-1.5); ALKALINE PHOSPHATASE 84 IU/L (46-116); ANION GAP 10 (8-16); ASPARTATE AMINO TRANSFERASE 16 U/L (10-37); BILIRUBIN,TOTAL 0.7 MG/DL (0.1-1.0); BLOOD UREA NITROGEN 15 MG/DL (7-18); CALCIUM 8.5 MG/DL (8.5-10.1); CHLORIDE 105 MMOL/L (99-107); CREATININE 0.88 MG/DL (0.60-1.10); GLUCOSE 125 MG/DL (70-104); MAGNESIUM 1.8 MG/DL (1.5-2.4); POTASSIUM 3.8 MMOL/L (3.5-5.1); PRO BRAIN NATRIURETIC PEPTIDE 1108 PG/ML (0-125); SODIUM 140 MMOL/L (135-145); TOTAL CARBON DIOXIDE 25.3 MMOL/L (24-32); TOTAL PROTEIN 6.7 G/DL (6.4-8.2); eCRCL 83 ML/MIN; eGFR 85 ML/MIN
[2024-11-20 08:00] VITALS: RESP 16; O2SAT 98
--- NOTE | 2024-11-20 08:00 | ELECTROCARDIOGRAPH REPORT ---
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 VIOLA Richard Measurements Intervals [place] Rate: 78 P: 0 MS: 0 QRS: -31 QRSD: 126 T: 17 QT: 451 QTc: 514 Interpretive Statements Atrial fibrillation Left bundle branch block Electronically Signed On 11-24-2024 18:31:[address] VIOLA Richard Please click the below link to view image of tracing.
[2024-11-20] MEDS: losartan 50mg tablet PO SCH (08:38)
[2024-11-20] MEDS: aspirin 81mg tab.chew PO SCH (08:38)
[2024-11-20] MEDS: metoprolol succinate 25mg (24-HOUR) SR. Tablet PO SCH (08:38)
[2024-11-20 11:00] VITALS: BP 152/89; PULSE 82; RESP 16; TEMP 97.4; O2SAT 98
--- NOTE | 2024-11-20 11:44 | RADIOLOGY REPORT ---
CT Chest without intravenous contrast INDICATION: RLL Lung nodule TECHNIQUE: Multidetector spiral CT of the chest was performed from the lung apices to the upper abdom en. Axial, coronal and sagittal multiplanar reformats were performed. Radiation Dose : 1. Chest: CTDI volume is 18.7 mGy. Dose-length product is 804.9 mGy*cm The dose indicators for CT are the volume Computed Tomography (CT) Dose Index (CTDIvol) and the Dose Length Product (DLP), and are measured in units of mGy and mGy-cm, respectively. These indicators are not patient dose, but values generated from the CT scanner acquisition factors. The report includes radiation exposure data for exposures received during this examination. Comparison: Chest radiograph dated 11/20/2024 Findings: Lower neck: Normal thyroid. Luns: Right lower lobe subsegmental atelectasis. Heart/Vascular Structures: Cardiomegaly. Coronary artery calcifications. Vascular calcifications of t he aorta. Lymph Nodes: No adenopathy Pleura: No pleural effusion or significant pneumothorax. Musculoskeletal: No acute osseous abnormality. Multilevel degenerative changes of the spine. Soft tissues: Normal. Upper abdomen: Limited portions of the upper abdomen are unremarkable. IMPRESSION: Right lower lobe subsegmental atelectasis. Radiation optimization: All CT scans at this facility use at least one of these dose optimization selma hniques: automated exposure control mA and/or kV adjustment per patient size (includes targeted exam s where dose is matched to clinical indication) or iterative reconstruction.
--- NOTE | 2024-11-20 14:53 | DISCHARGE SUMMARY ---
Discharge Summary Providers to CC ~ Discharge Summary Admission Diagnosis: Severe Aortic Stenosis Hospital Course DATE OF ADMISSION: 11/19/24 DATE OF DISCHARGE: 11/20/24 Discharge Diagnosis\Comment: Severe, symptomatic aortic stenosis status post TAVR Heart failure with mid-range ejection fraction Hypertension Left lower lobe atelectasis on CT scan Atrial fibrillation on Eliquis Operations\Procedures: 1. Ultrasound-guided access, bilateral femoral vessels. 2. Bilateral femoral angiography. 3. Ascending aortography. 4. Temporary transvenous pacer to the RV apex. 5. Placement of a 26 mm Soares S3 Resilia valve. Consultants: No consultants Complications: No complications Condition on DC: Stable Continued Medications: Apixaban (Eliquis) 5 Mg Tablet 1 TAB PO BID Furosemide (Furosemide) 80 Mg Tablet 0.5 TAB PO DAILY PRN for EDEMA Losartan Potassium (Losartan Potassium) 100 Mg Tablet 1 TAB PO DAILY Metoprolol Succinate (Metoprolol Succinate) 100 Mg Tab.sr.24h 1 TAB PO DAILY Discharge Summary: This is a 74-year-old male who has past medical history significant for heart failure with improved ejection fraction, atrial fibrillation, EtOH and severe aortic stenosis. Was evaluated at the structural heart clinic and deemed appro priate candidate for transcatheter aortic valve replacement. Underwent placement of a 26 mm Soares S3 resilient valve via the right transfemoral approach. Please see Dr. Georgia Osorio's dictation for further details on this procedure. He was monitored overnight in the telemetry unit. He remained hemodynamically stable. Has been up and ambulatory. No complaints of chest pain or pressure. No shortness a breath. No dizziness, lightheadedness or syncope. Expresses readiness to go home. Postoperative testing included a EKG that reveals atrial fibrillation with controlled ventricular response. Echocardiogram demonstrates a LVEF 50%. TAVR valve is well seated. Aortic valve area 3.18 cm2. Mean gradient 10 mm of mercury. Peak velocity 2.19 m/sec. He had a chest x-ray that demonstrated a right lower lobe nodule. CT scan demonstrated right lower lobe atelectasis. No mentioned of lung nodule. Laboratory Tests Test 11/20/24 06:30 White Blood Count 12.9 X10'3 (4.5-11.0) Red Blood Count 4.30 X10'6 (4.70-6.10) Hemoglobin 12.0 g/dl (14.0-17.9) Hematocrit 37.8 % (42.0-52.0) Mean Corpuscular Volume 88.0 FL (78-98) Mean Corpuscular Hemoglobin 28.0 PG (27.0-31.0) Mean Corpuscular Hemoglobin Concent 31.8 g/dL (33.0-36.5) Red Cell Distribution Width 15.8 % (11.5-14.5) Platelet Count 184 X10'3 (140-440) Mean Platelet Volume 9.4 FL (7.4-10.4) Neutrophils (%) (Auto) 84.1 % (42-75) Lymphocytes (%) (Auto) 8.2 % (21-51) Monocytes (%) (Auto) 7.2 % (2-12) Eosinophils (%) (Auto) 0 % (0-6) Basophils (%) (Auto) 0.5 % (0-1) Neutrophils # (Auto) 10.9 X10'3 (1.8-7.7) Lymphocytes # (Auto) 1.1 X10'3 (1.1-4.8) Monocytes # (Auto) 0.9 X10'3 (0-0.9) Eosinophils # (Auto) 0.0 X10'3 (0-0.9) Basophils # (Auto) 0.1 X10'3 (0-0.2) CBC Comment Sodium Level 140 MMOL/L (135-145) Potassium Level 3.8 MMOL/L (3.5-5.1) Chloride Level 105 MMOL/L (99-107) Carbon Dioxide Level 25.3 MMOL/L (24-32) Anion Gap 10 (8-16) Blood Urea Nitrogen 15 MG/DL (7-18) Creatinine 0.88 MG/DL (0.60-1.10) Estimated GFR/1.73 m2 85 ML/MIN BUN/Creatinine Ratio 17.0 (10.0-20.0) Glucose Level 125 MG/DL (70-104) Calcium Level 8.5 MG/DL (8.5-10.1) Magnesium Level 1.8 MG/DL (1.5-2.4) Total Bilirubin 0.7 MG/DL (0.1-1.0) Aspartate Amino Transf (AST/SGOT) 16 U/L (10-37) Alanine Aminotransferase (ALT/SGPT) 19 U/L (12-78) Alkaline Phosphatase 84 IU/L (46-116) Pro-B-Type Natriuretic Peptide 1108 PG/ML (0-125) Total Protein 6.7 G/DL (6.4-8.2) Albumin 3.0 G/DL (3.4-5.0) Globulin 3.7 G/DL (2.7-4.3) Albumin/Globulin Ratio 0.8 (1.1-1.5) Chemistry Comments Vital Signs Date Time Temp Pulse Resp B/P (MAP) Pulse Ox O2 Delivery O2 Flow Rate FiO2 11/20/24 11:00 97.4 82 16 152/89 (110) 98 Room Air 11/19/24 15:00 0.0 Physical exam prior to discharge: General: Awake, alert, oriented. No apparent distress Respiratory: Lungs are clear to auscultation bilaterally. No respiratory distress. Chest: Normal shape and size. No accessory muscle use. Cardiovascular: Regular rate and rhythm. S1-S2. No murmur, gallop, rub. Gastrointestinal: Abdomen is soft, large. Nontender to palpation. Bowel sounds present. Extremities: No lower extremity edema, cyanosis or clubbing. Bilateral femoral cath sites with dressings clean dry and intact. No ecchymosis or swelling. No hematoma. Dorsalis pedis pulses are palpable. Neurologic: Alert and oriented x4. Nonfocal Psychiatric: Normal mood and affect. Skin: Normal color. Warm and dry. Plan: Patient is being discharged home in stable condition. He will resume his Eliquis tonight. He will resume his other medications as prescribed. He will follow up as scheduled. Activity restrictions reviewed. Case discussed with Dr. Georgia Osorio. In agreement with discharge home. *Problems/Diagnosis: (1) Heart failure with improved ejection fraction (HFimpEF) (2) Hypertension (3) Aortic stenosis Total Time Spent on D/C: > 30 Minutes Counseling Services Smoking & Tobacco Cessation: N/A Supervising MD Co-signing Provider: NICOLASA Toure NP Nov 20, 2024 14:52
[2024-11-20 15:00] VITALS: BP 137/81; PULSE 82; RESP 14; TEMP 97.6; O2SAT 95
--- NOTE | 2024-11-22 09:33 | CARDIOLOGY REPORT ---
APPROVED REPORT EXAM: Limited 2D, Doppler, and color-flow Echocardiogram. Patient Location: [facility] Blood Pressure: 152/89 mmHg Heart Rate: 72-88 bpm Rhythm: Atrial Fibrillation Indications ONE DAY FOLLOW-UP TAVR 26 mm Soares Jules 3 Ultra RESILIA Bioprosthetic TAVR Carbon Setter: Fredi Osorio MD. Previous echo 11/19/24 [facility] EF 45; FRANSISCO 3.2; Peak v 1.82; Grad 13/7 2D Dimensions LVOT Diameter 2.61 (1.8-2.4cm) Aortic Valve AoV Peak Gentry. 218.6 cm/s AoV VTI 44.0 cm AO Peak GR. 19.1 mmHg AO Mean GR. 10 mmHg LVOT VTI 26.03 cm LVOT Peak Gentry. 136.6 cm/s FRANSISCO(VTI)/BSA 3.18 cm2/m2 FRANSISCO (VTI) 3.18 cm2 Mitral Valve MV Peak Gr. 10 mmHg MV PHT 80 ms MVA (PHT) 2.75 cm2 MV SNfy782.4 cm/s Tricuspid Valve TR P. Velocity 259 cm/s TR Peak Gr. 27 mmHg LEFT VENTRICLE LV appears normal in size with mild concentric hypertrophy. Overall systolic function appears mildly reduced. LVEF is 50%. RIGHT VENTRICLE RV appears mildly dilated with normal contractility. AORTIC VALVE 26 mm Soares Jules 3 Ultra RESILIA Bioprosthetic TAVR appears well seated. FRANSISCO of 3.18 cmsq with a peak/mean gradient of 19/10 mmHG and a peak velocity of 2.19 m/s. Trivial paravalvular leak noted at 6 oclock PSAX TTE. MITRAL VALVE MV is thickened with mild annular calcification and no significant stenosis. Trace mitral regurgitati on. TRICUSPID VALVE The tricuspid valve is normal in structure. Trace tricuspid regurgitation. PERICARDIUM There is no pericardial effusion. Other Information Study Quality: Adequate Conclusion LV appears normal in size with mild concentric hypertrophy. Overall systolic function appears mildly reduced. LVEF is 50%. RV appears mildly dilated with normal contractility. 26 mm Osares Jules 3 Ultra RESILIA Bioprosthetic TAVR appears well seated. FRANSISCO of 3.18 cmsq with a peak/mean gradient of 19/10 mmHG and a peak velocity of 2.19 m/s. Trivial paravalvular leak noted at 6 oclock PSAX TTE. MV is thickened with mild annular calcification and no significant stenosis. Trace mitral regurgitati on. The tricuspid valve is normal in structure. Trace tricuspid regurgitation. There is no pericardial effusion.
== END 2024-11-20 17:23 | disposition home or self-care (01) | DRG 266 ==
LOC: PAS IN 08:14 → PCU 3S 12:44
PROVIDERS: ADMIT Internal Medicine Cardiovascular Disease; ATTEND Internal Medicine Cardiovascular Disease
PROC: B41D1ZZ Fluoroscopy of Aorta and Bilateral Lower Extremity Arteries using Low Osmolar Contrast (ICD-10-PCS; 2024-11-19)
PROC: 02RF38Z Replacement of Aortic Valve with Zooplastic Tissue, Percutaneous Approach (ICD-10-PCS; principal; 2024-11-19 11:50)
DX: I35.0 Nonrheumatic aortic (valve) stenosis (principal); Z00.6 Encounter for examination for normal comparison and control in clinical research program; I50.23 Acute on chronic systolic (congestive) heart failure; J98.11 Atelectasis; I48.91 Unspecified atrial fibrillation; I11.0 Hypertensive heart disease with heart failure; Z79.899 Other long term (current) drug therapy; Z79.01 Long term (current) use of anticoagulants
CPT/HCPCS: 33361; 36415; 71045; 71046; 71250; 76937; 80053; 81003; 82948; 83735; 83880; 85025; 85347; 85610; 85730; 86885; 86900; 86901; 86920; 87081; 93005; 93308; A4618; A6258; A6449; A6590; C1756; C1760; C1769; C1894; G0378; J0360; J0690; J1100; J1644; J2003; J2250; J2371; J2405; J2704; J2720; J3010; J3370; J3372; J3490; J7030; J7040; J7050; J7120; Q9967

== ENCOUNTER 2025-05-18 05:34 | Observation (INO) | payer MEDICARE, BC ==
[2025-05-17] MEDS: DOCUMENT DATE & TIME OF BETA-BLOCKER PO ONE (18:30)
[~2025-05-18] VITALS: Ht 182.9 cm; Wt 149.2 kg
[2025-05-18] VITALS (19 sets, daily range): BP systolic 103–165; BP diastolic 74–104; PULSE 71–87; RESP 12–20; TEMP 97.3–98.9; O2SAT 94–100
[2025-05-18] MEDS: Cefazolin 3 GM/100ML NS IVPB 100 ML IV ONE (05:30)
[~2025-05-18 05:34] MED LIST changes: +FERR-119 PO; -FURO80TA3 PO; +LEVO25TA2 PO; -LOSA100T58 PO; -METO-411 PO; +METO50TA16 PO; +PANT-47 PO; -ondansetron/PF 4mg/2ml inj IV PRN; -protamine sulfate 10mg/ml inj. ONE
[2025-05-18] MEDS: VANCOMYCIN/H2O 1.5g/300mL PB 300 ML IV ONE (06:34)
[2025-05-18] MEDS: ringers solution, lacted 1,000 ML IV SCH ×2 (06:34→12:34)
[2025-05-18 06:39] LABS: ISTAT ANION GAP 14.0 (8-12); ISTAT BUN 15.0 mg/dL (7-18); ISTAT CL 105.0 mmol/L (99-107); ISTAT CREATININE 1.0 mg/dL (0.8-1.3); ISTAT GLUCOSE 139.0 mg/dL (70-104); ISTAT HGB 10.9 g/dl (14.0-17.9); ISTAT Hct 32.0 %PCV (42-52); ISTAT IONIZED CALCIUM 1.16 mmol/L (1.03-1.32); ISTAT K 3.8 mmol/L (3.5-5.1); ISTAT NA 140.0 mmol/L (135-145); ISTAT TOTAL CO2 21.0 mmol/L (24-32); ISTAT eGFR 73.0 ML/MIN; POC BUN/CREATININE RATIO 15.0 (5.4-32.0)
[2025-05-18] MEDS ORDERED: BUPIVACAINE/MELOXICAM 14 ML VIAL IL ONE (06:39)
[2025-05-18] MEDS ORDERED: ondansetron/PF 4mg/2ml inj IV PRN ×2 (06:55→09:15)
[2025-05-18] MEDS ORDERED: bisacodyl 10mg suppository rectal RC PRN (06:55)
[2025-05-18] MEDS ORDERED: PCA WASTE DOCUMENTATION 1 MG ML MC SCH (06:55)
[2025-05-18] MEDS ORDERED: magnesium hydroxide 30ml (MOM) UD suspension PO PRN (06:55)
[2025-05-18] MEDS ORDERED: MIDAZolam 1mg/ml 10ml vial ONE (07:34)
[2025-05-18] MEDS ORDERED: fentaNYL/PF 50MCG/1 ML 2ML syringe ONE (07:34)
[2025-05-18] MEDS ORDERED: propofol inj 20 ML IV ONE (07:34)
[2025-05-18] MEDS: BUPIVACAINE/MELOXICAM 14 ML VIAL IL ONE (08:29)
[2025-05-18] MEDS ORDERED: fentaNYL/PF 50MCG/1 ML 2ML syringe IV PRN ×2 (09:15)
[2025-05-18] MEDS ORDERED: hydrALAZINE 20mg/ml inj. IV PRN (09:15)
[2025-05-18] MEDS ORDERED: HYDROmorphone/PF 0.2 MG/ML SYRINGE IV PRN ×2 (09:15)
[2025-05-18] MEDS ORDERED: acetaminophen 1,000mg/100ml IV 100 ML IV PRN (09:15)
[2025-05-18] MEDS ORDERED: labetalol 20mg/4ml (5mg/ml) syringe IV PRN (09:15)
[2025-05-18] MEDS ORDERED: ROPIVAcaine 0.5% (5mg/ml) 30ml vial ONE (09:35)
[2025-05-18] MEDS ORDERED: phenylephrine 10mg/ml inj. ONE (09:35)
--- NOTE | 2025-05-18 09:55 | OPERATIVE REPORT ---
Operative Report Operative Report Procedure: Computer-assisted, robotically-assisted, right total knee arthroplasty. Surgeon: Dr. Jose Parkinson Irrigation System Installer: Laurel Ferrer PA-C Anesthesiologist: Dr. Dailey Anesthesia: General anesthetic Indications: 74-year-old male who has chronic osteoarthritis of the right knee with severe pain and limitation of activities despite extensive non-operative management. This patient has had extensive conservative treatment of knee joint arthritis, including rest, external joint support, anti-inflammatory medications, physical therapy, and corticosteroid injection. Physical therapy has been provided, along with a home exercise program prior to making the decision to proceed with surgical treatment. This therapeutic intervention did not provide any substantial relief of symptoms or improvement in function. The patient has been utilizing a cane, set of crutches, or walker, for more than 3 months prior to deciding to proceed with surgery. These interventions have not provided sufficient relief of pain to allow improvement in function. The patient has utilized non-steroidal anti-inflammatory medications for relief of pain over an extended period of time (more than 2 months), and has not experienced sufficient improvement in symptoms. Despite these treatments, this patient has continued difficulties with pain and limited function. They are unable to walk long distances, do vigorous activities, sit or sleep comfortably. Total knee replacement is the next reasonable step in terms of treatment. Indications for assistant professor of nursing surgeon: A second set of skilled hands with specific orthopedic knowledge of the surgical procedure and orthopedic surgical techniques was necessary to accomplish this operation successfully, and with the least amount of morbidity for the patient. This facilitated operative exposure, manipulation and handling of tissues, placement of any implants, and accomplishment of wound closure. Findings: There was indeed a very severely arthritic knee, with loss of cartilage, exposed bone, and marginal osteophytes. The lateral compartment was particularly bad. A 5 degree valgus deformity and 3 degree flexion contracture were measured preoperatively. Post operative alignment was 1 degree valgus, and 1 degree extension. Complications: None Estimated Blood Loss: 200 mL Implants: A Grisel Persona CR total knee system was utilized with a size eight right femoral component, a size G right tibial component with a smart stem, and a 38 mm patellar component. A 12 mm medial congruent right tibial insert was utilized. The [employer] robotically assisted total knee arthroplasty system and computer was utilized. Procedure: The risks, benefits, expected results, and possible complications of the planned procedure had been explained to the patient and informed consent obtained. The patient was taken to the operating room and underwent a spinal anesthetic. The patient was placed in the supine position on the operating table, and the right leg was prepped and draped in the usual fashion. A timeout was taken prior to surgery, confirming patient identification, operative side operative site, planned procedure, administration of pre-operative antibiotics, site marking, and presence of all necessary implants and instruments, x-rays and equipment. A standard anterior, slightly lateral approach was performed with a medial parapatellar arthrotomy, and a VMO split. Time was then spent removing excessive synovial tissue and exposing the medial and lateral gutters, as well as moving the anterior sections of the residual menisci. The patella was mobilized to be able to be retracted laterally. This gave exposure of the anterior aspect of the knee. Attention was then directed to the patella. An oscillating saw was utilized to make a flat cut in a freehand manner, removing approximately 9 mm of thickness. The patella was then sized and drilled for the appropriate size patella implant. Infrared arrays were then placed on the distal shaft of the femur anteriorly, and the proximal tibia medially. Utilizing the [employer] computer system, the hip, knee, and ankle were landmarked in usual fashion. The initial alignment measurements were then taken confirming the above listed deformity. Surgical planning was then carried out on the computer, confirming alignment of components, sizing, and gap balancing. Appropriate soft tissue releases were performed. The assistant professor of nursing surgeon was instrumental in maintaining exposure and tissue management and protecting vital structures. The robot was then utilized to perform all distal femoral cuts. The femur was prepared in 4 degrees of flexion and neutral coronal alignment. The robot was then utilized to cut the proximal tibia in 5 degrees of flexion and neutral coronal alignment. The computer was then utilized to check longitudinal alignment and soft tissue balance, and this confirmed excellent alignment. Next the dynamic balancing block was utilized to check and adjust soft tissue balancing. Finally, attention was directed to the proximal tibia. The implant was sized and properly rotated, the central drill, and the fin punch performed. Final check of alignment and balancing was then carried out, as well as final removal and cleaning up of soft tissue such as meniscal remnants and osteophytes. A tourniquet was inflated to 300 mmHg after exsanguination of the leg with an Esmarch. Cement was then mixed; 2 batches were utilized, mixed together, for the tibia, the femur and the patella. The cut surface of the tibia was thoroughly lavaged with the pulsating lavage and then dried. The tibia was impacted with the mallet, seating it quite nicely in its proper rotational alignment. Excess cement was removed from around the margins. The femoral cuts were cleaned with a pulsating lavage and then dried with the lap sponges, and the femur was impacted into position with a mallet. The patella was held firmly in place with a clamp. Excess cement was removed around the margins of the components as the cement cured. Pressure was held on the femoral component and tibia by placing a spacer and bringing the leg to full extension and applying axial and hyperextension force. Upon complete hardening of all cement, the knee was inspected and excess cement removed. We lavaged the knee to wash out any debris and checked to make sure we had no impinging cement. The trial spacer was replaced and overall alignment checked with computer, ensuring we had full extension of the knee, and appropriate medial and lateral soft tissue balance, as well as flexion and extension balance. The tourniquet was deflated and hemostasis obtained with electrocautery. The wound was irrigated thoroughly one more time and then dried with lap sponges. The final tibial spacer was impacted and locked into the locking mechanism without difficulty. After final irrigation and suction of excess fluid, the knee was infiltrated with Zynrelief for postoperative pain control. The tibial and femoral navigation pins and arrays were removed. The tourniquet was then deflated, tourniquet time was 10 minutes. The wound was then closed in layers including retinacular closure, subcutaneous tissue, and skin. A sterile dressing was applied and the patient was returned to the recovery room in satisfactory condition. In the recovery area the remote monitoring station was dispensed to the patient and family. Instructions were given for its usage and quarter supervisor once the patient got home. We also confirmed the patient had installed the [employer] mobility software, and we ensured that the patient was enrolled in appropriate software platform from our end. Remote monitoring was initiated at the preoperative appointment and the devices used for remote monitoring implanted and dispensed today. JOSE PARKINSON MD May 18, 2025 09:55
[2025-05-18] MEDS: potassium cl 20mEq in 1/2 NS 1,000 ML IV SCH (15:11)
[2025-05-18] MEDS: oxyCODONE IR 5mg (immed. release) tablet PO PRN (15:21)
[2025-05-18] MEDS: ceFAZolin/D5W- 1GM premix 50 ML IV SCH (16:30)
[2025-05-18] MEDS: vancomycin/NS 1 GM ADD-VANTAGE 250 ML IV SCH (21:01)
[2025-05-18] MEDS: pantoprazole 40mg Tablet.DR PO SCH (21:02)
[2025-05-19 02:56] VITALS: BP 145/82; PULSE 90; RESP 16; O2SAT 97
[2025-05-19 06:00] VITALS: BP 171/92; PULSE 72; RESP 18; TEMP 98.1; O2SAT 97
[2025-05-19 06:18] LABS: MEAN PLATELET VOLUME 8.7 FL (7.4-10.4); RED CELL DISTRIBUTION WIDTH 16.4 % (11.5-14.5)
[2025-05-19 06:49] LABS: TOTAL CARBON DIOXIDE 25.4 MMOL/L (24-32)
--- NOTE | 2025-05-19 08:05 | PROGRESS NOTE ---
Progress Note Ortho Ortho Post Op Day #: 1 Follow Up Progress Note Patient had an uneventful overnight. Physical therapy came to work with him this morning however upon standing patient became significantly hypotensive and needed to sit in a chair. He is unable to ambulate at this point and therefore cannot clear physical therapy to be discharged at this time. Patient will stay another overnight stay as he is still recovering from recent GI bleed with decreased H&H. Labs are currently stable with continued improvement in H&H. Incision clean dry and intact. No bleeding coming from the wound site. ROS ROS No new complaints Exam Exam: Alert and Oreinted x4, In no acute distress, Dressing clean and dry, Wound clean and dry, Distal neurovasc intact Problem/Assessment/Plan Assessment\Plan: Doing Well, Cont. Physicial Therapy Results/Orders Result Diagram: 05/19/25 0531 05/19/25 0531 ANABELL CORDERO [facility] May 19, 2025 08:05
[2025-05-19] MEDS: levoTHYROXINE 25mcg tablet PO SCH (09:26)
[2025-05-19 11:54] VITALS: RESP 18
[2025-05-19 18:00] VITALS: BP 105/66; PULSE 83; RESP 18; TEMP 98.2; O2SAT 97
[2025-05-19 22:00] VITALS: BP 111/73; PULSE 86; RESP 12; TEMP 98.2; O2SAT 96
[2025-05-20 02:00] VITALS: BP 123/73; PULSE 80; RESP 16; TEMP 98.1
[2025-05-20 05:54] LABS: MEAN PLATELET VOLUME 8.8 FL (7.4-10.4); RED CELL DISTRIBUTION WIDTH 16.8 % (11.5-14.5)
[2025-05-20 06:00] VITALS: BP 116/76; PULSE 80; RESP 14; TEMP 98.1; O2SAT 97
[2025-05-20 07:00] VITALS: RESP 14; O2SAT 97
--- NOTE | 2025-05-20 07:30 | DISCHARGE SUMMARY ---
Discharge Summary Ortho CC ~ Discharge Summary Discharge Date: May 20, 2025 *Problems/Diagnosis: (1) S/P total knee arthroplasty Status: Acute Admission Diagnosis: osteoarthritis Discharge Diagnosis\Comment: See above Operations\Procedures see above Consultants: none Complications: none Condition on DC: Stable Discharge Summary: Patient was admitted on date of surgery. Surgery went as planned, without complication. Post-op day one patient initially failed to meet PT criteria for discharge. Patient has since meet all discharge criteria and is stable for d/c home/self care. Total Time Spent on D/C: Up to 30 Minutes Medications Home Meds: Home Medications Active Reported Metoprolol Tartrate 50 Mg Tablet 1 Tab PO Q12H 30 Days Iron (Ferrous Sulfate) 325 Mg (65 Mg Iron) Tablet 1 Tab PO DAILY 30 Days PROTONIX tablet (Pantoprazole Sodium) 40 Mg Tablet.dr 1 Tab PO BID 30 Days Synthroid* (Levothyroxine Sodium) 25 Mcg Tablet 1 Tab PO DAILY 30 Days Eliquis (Apixaban) 5 Mg Tablet 1 Tab PO BID Supervising Physician Supervising Physician: Dr. Jose Parkinson Problem Qualifiers (1) S/P total knee arthroplasty: Qualified Codes: Z96.651 - Presence of right artificial knee joint ANABELL CORDERO May 20, 2025 07:29
[2025-05-20 08:27] VITALS: BP_SYST 116; PULSE 74
[2025-06-12] MEDS ORDERED: SPIR25TA5 PO (20:43)
[2025-06-14] MEDS ORDERED: CEPH500C3 PO (11:24)
== END 2025-05-20 10:45 | disposition home or self-care (01) ==
LOC: PAS 05:34 → PAS IN 07:08 → ORTHO 4S 11:31
PROVIDERS: ADMIT Orthopaedic Surgery; ATTEND Orthopaedic Surgery
DX: M17.11 Unilateral primary osteoarthritis, right knee (principal); M25.561 Pain in right knee; I10 Essential (primary) hypertension; E03.9 Hypothyroidism, unspecified; Z79.899 Other long term (current) drug therapy; Z98.890 Other specified postprocedural states
CPT/HCPCS: 20985; 27447; 80047; 80051; 96365; 96366; 96368; 97161; A4215; A7000; C1713; C1776; G0378; J0668; J2371; J3375; J3480; J7120; 36415; 85025; 87081; 97110; 97116; 97530; A6258; A6449; A6590; J0690; J2250; J2704; J2795; J3010; J3373